=== PATIENT | female | born 1995 | race Caucasian/White ===

== ENCOUNTER 2020-05-20 21:35 | Emergency (ER) | payer BC ==
--- NOTE | 2020-05-20 22:37 | EDM.PDOC ---
ED HPI GENERAL MEDICAL PROBLEM - General Chief Complaint: Eye Problems Stated Complaint: LEFT EYE INJURY Time Seen by Provider: 05/20/20 22:15 Source of Information: Reports: Patient, Family History Limitations: Reports: No Limitations - History of Present Illness INITIAL COMMENTS - FREE TEXT/NARRATIVE: 24 yo female was hit in the upper eye lid several hrs ago by a tree branch. She wears contacts and is still able to wear them. While her vision is OK she has noted some shadows when she looks down. No flashing of lights. No photophobia. No significant pain. Thinks when she straight ahead that her vision in the left lower quadrant is not as good. Is visiting from out of town until tomorrow. Onset: Today, Sudden Onset Date: 05/20/20 Onset Time: 15:00 Duration: Hour(s):, Constant Location: Reports: Face (L eye) Quality: Reports: Dull Severity: Mild Improves with: Reports: None Worsens with: Reports: None Context: Reports: Trauma Associated Symptoms: Reports: No Other Symptoms Treatments [employer] INSURANCE: Reports: Other (see below) (none) left eye lid Pain Score (Numeric/FACES): 2 - Related Data Allergies Allergy/AdvReac Type Severity Reaction Status Date / Time No Known Allergies Allergy Verified 05/20/20 22:01 Home Meds: Home Meds InFLIXimab [Remicade] 100 mg IV ASDIRECTED 05/20/20 [History] Past Medical History Respiratory History: Reports: Asthma, Other (See Below) Other Respiratory History: exercise induced asthma Gastrointestinal History: Reports: Other (See Below) Other Gastrointestinal History: Crohns Dermatologic History: Reports: Psoriasis, Other (See Below) Other Dermatologic History: 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 - Infectious Disease History Infectious Disease History: Reports: Chicken Pox - Past Surgical History HEENT Surgical History: Reports: Oral Surgery Social & Family History - Tobacco Use Smoking Status *Q: Never Smoker - Caffeine Use Caffeine Use: Reports: Coffee - Recreational Drug Use Recreational Drug Use: No ED ROS GENERAL - Review of Systems Review Of Systems: See Below Constitutional: Reports: No Symptoms HEENT: Reports: Eye Pain (minimal), Vision Change (sees some subtle shadows in that L eye) Skin: Reports: No Symptoms Neurological: Reports: No Symptoms ED EXAM GENERAL W FULL EYE - Physical Exam Exam: See Below General Appearance: Alert, WD/WN, No Apparent Distress Eye Exam: Left Eye: Conjunctival Injection (mainly the upper aspect of that eye.), Bilateral Eye: EOMI, PERRL Visual Acuity (R) 20/: 25 Visual Acuity (L) 20/: 30 With Correction: Yes Eyelids: Left: Erythema Conjunctiva & Sclera: Left: Injected (upper part of eye) Cornea Exam: Bilateral: Normal Appearance Extraocular Movements: Bilateral: Intact Pupils: Normal Accommodation Pupillary Size: Bilateral: 2 mm Pupillary Reaction: Bilateral: Brisk Ears: Hearing Grossly Normal Nose: No Blood Course - Vital Signs Last Recorded V/S: Last Vital Signs Temp 36.5 C 05/20/20 22:04 Pulse 59 L 05/20/20 22:04 Resp 14 05/20/20 22:04 BP 119/75 05/20/20 22:04 Pulse Ox 99 05/20/20 22:04 Departure - Departure Time of Disposition: 22:38 Disposition: Home, Self-Care 01 Condition: Good Clinical Impression: Visual changes - Discharge Information *PRESCRIPTION DRUG MONITORING PROGRAM REVIEWED*: No *COPY OF PRESCRIPTION DRUG MONITORING REPORT IN PATIENT EMETERIO: No Referrals: PCP,None [Primary Care Provider] - Additional Instructions: Avoid rubbing your left eye. If your vision is not 100% normal by Friday mo rning, then call an lamp cleaner of your choice for an eye exam. Acetaminophen as needed for pain relief. Sepsis Event Note (ED) - Evaluation Sepsis Screening Result: No Definite Risk - Focused Exam Vital Signs: Vital Signs Temp Pulse Resp BP Pulse Ox 05/20/20 22:04 36.5 C 59 L 14 119/75 99 05/20/20 21:48 36.5 C 59 L 14 119/75 99
== END 2020-05-20 23:05 | disposition home or self-care (01) ==
LOC: JP.ED 21:35
DX: H53.8 Other visual disturbances (principal)
CPT/HCPCS: 99283